=== PATIENT | male | born 1995 | race Caucasian/White ===

== ENCOUNTER 2019-07-20 07:19 | Emergency (ER) | payer OTHER ==
[~2019-07-20] VITALS: Ht 185.4 cm; Wt 108.6 kg
[2019-07-20 07:25] VITALS: BP 168/102
[2019-07-20] MEDS: IBUPROFEN 800 MG TAB PO ONE (08:21)
[2019-07-20] MEDS: BACITRACIN OINT 500 UNITS/GM PKT TP ONE (08:32)
--- NOTE | 2019-07-20 09:17 | NUR ---
Patient discharged with v/s stable. Written and verbal after care instructions given and explained. Patient verbalized understanding. Ambulatory with steady gait. All questions addressed prior to discharge. Advised to follow up with PMD.
[2019-07-20 10:05] VITALS: BP 110/70
== END 2019-07-20 09:17 | disposition home or self-care (01) ==
LOC: MED 07:19
DX: S31.21XA Laceration without foreign body of penis, initial encounter (principal); X58.XXXA Exposure to other specified factors, initial encounter; Y93.89 Activity, other specified; Y92.89 Other specified places as the place of occurrence of the external cause; Y99.8 Other external cause status
CPT/HCPCS: 99283